=== PATIENT | male | born 1990 | race Hispanic/Latino ===

== ENCOUNTER → 2018-07-20 | Day surgery (SDC) | payer OTHER ==
[~2018-07-20] MED LIST: FENTANYL CITRATE/PF 100MCG/2 ML INJ ONE; IBUPROFEN400 MG PO; MIDAZOLAM HCL 2 MG/2 ML VIAL ONE; PROPOFOL IV EMULSION 10 MG/ML 50 ML VIAL ONE
--- OUTSIDE RECORDS SUMMARY | 2018-07-20 06:10 | XMS REPORT | Encounter Summary ---
Author Organization Unknown Address [address] [place] [address] Phone [phone] Care Team Providers [employer] Name Role Phone Dr. Francisco Pena 3 [phone] Reason for Visit Left ear pain/problem; cough / congestion Instructions 1. Acute sinusitis ceftriaxone 1 gram solution for injection fluticasone propionate 50 mcg/actuation nasal spray,suspension Kenalog 40 mg/mL suspension for injection Cheratussin AC 10 mg-100 mg/5 mL oral liquid 2. Acute otitis media prdlyzqn-ulhiyiguc-wxkenccil 3.5 mg-10,000 unit/mL-1 % ear drops,susp Keflex 500 mg capsule Discussion Note: None recorded. Patient educational handouts: No information available. Plan of Care Reminders Provider Appointments None recorded. Lab None recorded. Referral None recorded. Procedures None recorded. Surgeries None recorded. Imaging None recorded. Medications Name Start Date ceftriaxone 1 gram solution for injection 1 GM Cheratussin AC 10 mg-100 mg/5 mL oral liquid Take 10 mL every 6-8 hours by oral route as needed for 5 days. fluticasone propionate 50 mcg/actuation nasal spray,suspension [place] 1 spray twice a day by intranasal route as directed for 14 days. Keflex 500 mg capsule Take 1 capsule every 8 hours by oral route as directed for 10 days. Kenalog 40 mg/mL suspension for injection Take 40 mg by injection route. jcdtobhb-frcfuphkr-pdlqzumrv 3.5 mg-10,000 unit/mL-1 % ear drops,susp INSTILL 4 DROPS INTO AFFECTED EAR(S) BY OTIC ROUTE 3 TIMES PER DAY FOR 1 WEEK Medications Administered Name Date ceftriaxone 1 gram solution for injection 1 GM 5386-49-90S17:45:00 Kenalog 40 mg/mL suspension for injection Take 40 mg by injection route. [id number]:42:00 Vitals Height Weight BMI Blood Pressure 5 ft 7 in 167.6 lbs 26.2 kg/m2 116/70 mm[Hg] Lab Results None recorded. Allergies Code Code System Name Reaction Severity Status Onset NKDA Problems No Known Problems Procedures None recorded. Vaccine List Vaccine Type Tdap 03/21/20180.5 mL Social History Smoking Status Current Some Day Smoker Past Encounters 06/06/2018 Acute Sinusitis; Acute Otitis Media Francisco Villalobos MD: [address] [place] [address], Ph. History of Present Illness Note:Pt is complaining of runny nose,nasal congestion, L ear pain and productive cough since 10 days ago. Denies sore throat, sob, wheezing or chest pain Review of Systems:ROS as noted in the HPI Review of Systems None recorded. Physical Exam General Adult Exam (male) Reported By: Patient Constitutional: General Appearance: healthy-appearing, overweight. Level of Distress: NAD. Ambulation: ambulating normally Psychiatric: Insight: good judgement. Mental Status: active and alert, normal mood, normal affect. Orientation: to time, to place, to person. Memory: recent memory normal, remote memory normal Eyes: Lids and Conjunctivae: non-injected, no discharge. EOM: EOMI ENMT: Ears: TM erythematous, TM bulging. Nose: nares non-patent, sinus tenderness, nasal discharge, post nasal drip. Lips, Teeth, and Gums: no mouth or lip ulcers. Oropharynx: moist mucous membranes, no exudates, tonsils not enlarged, erythema Neck: Neck: supple, trachea midline. Lymph Nodes: cervical LAD Lungs: Auscultation: breath sounds normal Cardiovascular: Heart Auscultation: RRR, normal S1, normal S2, no murmurs Musculoskeletal:: Motor Strength and Tone: normal, normal tone. Joints, Bones, and Muscles: normal movement of all extremities. Extremities: no edema Neurologic: Gait and Station: normal gait
--- OUTSIDE RECORDS SUMMARY | 2018-07-20 06:10 | XMS REPORT ---
Author Author [facility] Address Unknown Phone Unavailable Care Team Providers Care Surgical Nurse Name Role Phone Unavailable Unavailable Payers Payer Name Policy Type Policy Number Effective Date Expiration Date Problems This patient has no known problems. Allergies, Adverse Reactions, Alerts This patient has no known allergies or adverse reactions. Medications This patient has no known medications.
--- NOTE | 2018-07-20 07:15 | NUR ---
SPIRITUAL CARE - Pre-Surgery Assessment: Pt in bed. Pt reported supportive attention from family and friends. Intervention: I provided pastoral presence, hospitality, and sympathetic listening. I acquainted pt with availability of clock repair technician while hospitalized. Outcome: Pt expressed appreciation for visit. No need for follow up indicated at this time. SHUK[facility] Sonilain Spiritual Care Department O: [phone] Pager: [phone])
[2018-07-20 08:50] VITALS: BP 123/88
== END | disposition home or self-care (01) ==
LOC: OR 06:08
PROVIDERS: ATTEND Internal Medicine Gastroenterology
DX: K29.50 Unspecified chronic gastritis without bleeding (principal); K31.89 Other diseases of stomach and duodenum; K22.70 Barrett's esophagus without dysplasia; K21.0 Gastro-esophageal reflux disease with esophagitis; K44.9 Diaphragmatic hernia without obstruction or gangrene; Z71.3 Dietary counseling and surveillance; E66.3 Overweight; M54.9 Dorsalgia, unspecified; F17.210 Nicotine dependence, cigarettes, uncomplicated; Z68.25 Body mass index [BMI] 25.0-25.9, adult
CPT/HCPCS: 43235; 43239; J2250